=== PATIENT | female | born 1995 | race Two or more races ===

== ENCOUNTER 2018-02-15 13:38 | Emergency (ER) | payer OTHER ==
[2018-02-15 13:45] VITALS: BP 138/90; PULSE 96; TEMP 98; BMI 30.2
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
[2018-02-15] MEDS ORDERED: KETOROLAC TROMETHAMINE 60 MG/2 ML VIAL IM ONE (15:22)
[2018-02-15] MEDS ORDERED: KETOROLAC TROMETHAMINE 60 MG/2 ML VIAL ONE (15:28)
== END 2018-02-15 15:57 | disposition home or self-care (01) ==
LOC: JERFT 13:38
DX: M54.5 Low back pain (principal); M25.512 Pain in left shoulder; V44.5XXA Car driver injured in collision with heavy transport vehicle or bus in traffic accident, initial encounter; Y92.488 Other paved roadways as the place of occurrence of the external cause; Y93.89 Activity, other specified; Y99.8 Other external cause status
CPT/HCPCS: 84703; 99281-25